=== PATIENT | female | born 1980 | race American Indian/Alaskan Native ===

== ENCOUNTER 2018-08-09 07:32 | Day surgery (SDC) | payer MEDICAID, OTHER ==
[~2018-08-09 07:32] MED LIST: MARCAINE 0.5% INFILTRATI ONE
[2018-08-09] MEDS ORDERED: LACTATED RINGERS 1,000 ML IV SCH (08:29)
[2018-08-09] MEDS ORDERED: NEURONTIN PO NR (08:29)
[2018-08-09] MEDS ORDERED: VERSED IV NR (08:30)
[2018-08-09] MEDS ORDERED: DILAUDID IV PRN (08:52)
--- NOTE | 2018-08-09 08:52 | Anesthesia Consultation ---
Anesthesia Consult and Med Hx Date of service: 08/09/18 - Airway Anesthetic Teeth Evaluation: Good ROM Head & Neck: Adequate Mental/Hyoid Distance: Adequate Mallampati Class: Class I Intubation Access Assessment: Probably Good - Pulmonary Exam CTA: Yes - Cardiac Exam Cardiac Exam: RRR - Pre-Operative Health Status ASA Pre-Surgery Classification: ASA3 Proposed Anesthetic Plan: General - Pulmonary Hx Smoking: No Hx Asthma: No COPD: No - Cardiovascular System Hx Hypertension: No - Central Nervous System Hx Seizures: No CVA: No - Gastrointestinal Hx Gastroesophageal Reflux Disease: No - Endocrine Hx Renal Disease: No Hx Liver Disease: No Hx Insulin Dependent Diabetes: No Hx Non-Insulin Dependent Diabetes: No Hx Thyroid Disease: No - Other Systems Hx Alcohol Use: Yes (Occas) Hx Obesity: Yes (BMI 46) - Additional Comments Anesthesia Medical History Comments: No hx anesthetic complications.
--- NOTE | 2018-08-09 08:53 | Anesthesia Day of Surgery ---
Anesthesia Day of Surgery - Day of Surgery Patient Examined: Yes Patient H&P Reviewed: Yes Patient is NPO: Yes
[2018-08-09] MEDS ORDERED: NACL BACTERIOSTATIC INFILTRATI ONE (09:33)
[2018-08-09] MEDS ORDERED: MARCAINE 0.5% INFILTRATI ONE (10:05)
[2018-08-09] MEDS ORDERED: NACL 0.9% IR ONE (10:05)
[2018-08-09] MEDS ORDERED: DIPRIVAN 10 MG/ML IV ONE (10:10)
[2018-08-09] MEDS ORDERED: SUBLIMAZE ONE ×2 (10:10→10:54)
[2018-08-09] MEDS ORDERED: ZEMURON IV ONE (10:13)
[2018-08-09] MEDS ORDERED: XYLOCAINE MPF 2% ONE (10:13)
[2018-08-09] MEDS ORDERED: ZOFRAN ONE (10:46)
[2018-08-09] MEDS ORDERED: DECADRON ONE (10:47)
[2018-08-09] MEDS ORDERED: ROBINUL ONE (10:47)
[2018-08-09] MEDS ORDERED: BLOXIVERZ ONE (10:48)
[2018-08-09] MEDS ORDERED: APRESOLINE ONE (11:35)
[2018-08-09 12:53] VITALS: BP 115/70
[2018-08-09] MEDS ORDERED: PERCOCET 5/325 PO PRN (13:00)
--- NOTE | 2018-08-09 13:27 | Post Anesthesia Evaluation ---
- Post Anesthesia Evaluation Patient Participated: Yes Airway Patent: Yes Stable Respiratory Function: Yes Nausea/Vomiting: No Temp > 96.8F: Yes Pain Manageable: Yes Adequeate Hydration: Yes Anesthesia Complications: No
--- NOTE | 2018-08-09 13:46 | Operative Report ---
Operative Report Operative Report: Preoperative diagnosis: Multiparity, desires permanent sterilization. Postoperative diagnosis: 1. Multiparity, desires permanent sterilization. 2. Dense omental adhesions to the anterior abdominal wall and adnexae. Procedure: 1. Lysis of dense omental adhesions from the adnexae and anterior abdominal wall. 2. Laparoscopic tubal sterilization. Surgeon: Dr. [place] Control Officer: none Anesthesia: general EBL: negligible IVF: RL 1 liter Complications: none Intraoperative findings: Dense omental adhesions to the anterior abdominal wall and bilateral adnexae, normal uterus, fallopian tubes and ovaries bilaterally. Procedure details: Risks, benefits, and alternatives of the procedure were discussed in detail with the patient which included but not limited to risk of infection, hemorrhage requiring blood transfusion, injury to the bowel or bladder and blood vessels, failure of the tubal ligation to prevent which can result in unwanted pregnancies in the future. The patient expressed understanding, her questions were answered, and she gave informed consent. The patient was taken to the operating room with an IV fluid using Ringer's lactate. In the operating room, she was placed in a dorsal supine position and given general anesthesia. She was then placed on the stirrups in a dorsal lithotomy position. The perineum, vagina, cervix, and abdomen were washed and she was prepared and draped in usual sterile fashion. The bladder was drained with straight catheter. EUA revealed normal external genitalia and vagina. The cervix was closed, long, posterior, The uterus was 9-week size, anteverted, mobile. The adnexae were nonpalpable. A bivalve speculum was placed in the vagina and the anterior lip of the cervix was grasped with a single-tooth tenaculum. A HUMI uterine manipulator was advanced into the uterine cavity to provide a means of manipulating the uterus and the procedure. The speculum and tenaculum were then removed. Attention was then turned to the patient's abdomen where a 5 mm skin incision was made in the infraumbilical fold. The Veress needle was introduced into the peritoneal cavity while tenting the abdominal wall. Intraperitoneal placement was confirmed by using a water-filled syringe and by noticing a drop in the intra-abdominal pressure with CO2 gas insufflation. The trocar and sleeves were then advanced without difficulty into the abdomen where intraperitoneal placement was confirmed using laparoscope. Pneumoperitoneum was achieved with 4 L of CO2 gas. A second 5 mm skin incision was made in the left lower quadrant and a 5 mm trocar and sleeves were then advanced into the abdominal cavity under direct visualization with the laparoscope. A quick survey of the anatomy revealed dense omental adhesions to the anterior abdominal wall and bilateral adnexae, normal uterus, fallopian tubes, and ovaries bilaterally. Lysis of adhesions was performed to expose the pelvic structures. The left fallopian tube was grasped with bipolar forceps, cauterized at 2 locations, and transected. A similar procedure was done with the right fallopian tube which was cauterized and transected in a similar fashion. Good hemostasis was confirmed. The ports were then opened to release to CO2 gas from the abdomen. The instruments were then removed. The ports were closed with 3.0 vicryl sutures. Steri-Strip and Tegaderm were placed. The HUMI uterine manipulator was then removed from the uterine cavity. The counts of laps, needles, sponges, and instruments were correct 2. The patient tolerated the procedure well. She was awakened from anesthesia and taken to the recovery room in a stable condition.
== END 2018-08-09 13:30 | disposition home or self-care (01) ==
LOC: OR 07:32
PROVIDERS: ATTEND Obstetrics & Gynecology
DX: Z30.2 Encounter for sterilization (principal); E66.9 Obesity, unspecified; Z68.42 Body mass index [BMI] 45.0-49.9, adult; Z79.899 Other long term (current) drug therapy; Z98.890 Other specified postprocedural states; Z98.891 History of uterine scar from previous surgery; Z72.89 Other problems related to lifestyle
CPT/HCPCS: 58670; 81025; J0360; J1100; J1170; J2250; J2405; J2704; J2710; J3010; J7120